=== PATIENT | male | born 1990 | race Caucasian/White ===

== ENCOUNTER 2020-04-15 13:16 | Inpatient (IN) | payer BC, SELFPAY ==
[~2020-04-15] VITALS: Ht 167.6 cm; Wt 98.4 kg
[2020-04-15 13:19] VITALS: Ht 167.6 cm; Wt 98.4 kg
[2020-04-15 15:26] LABS: BASOPHIL % 0.2 % (0-2); PLATELET COUNT 134 x10^3mcL (130-400); RED CELL DISTRIBUTION WIDTH 13.5 % (11.5-14.5)
[2020-04-15 15:51] LABS: UA SPECIFIC GRAVITY 1.025 (1.005-1.035); microscopic required? YES; urine erythrocyte 2+ (NEGATIVE)
[2020-04-15 15:57] LABS: CALCIUM 7.6 mg/dL (8.5-10.1); CARBON DIOXIDE 22.7 mmol/L (21-32); CHLORIDE SERUM 95 mmol/L (98-107); CREATININE SERUM 1.1 mg/dL (0.7-1.3); GFR1 > 60 mL/min; GLUCOSE SERUM 123 mg/dL (74-106); POTASSIUM SERUM 3.4 mmol/L (3.5-5.1); SODIUM SERUM 128 mmol/L (136-145)
[2020-04-15 16:02] LABS: ALKALINE PHOSPHATASE 59 U/L (46-116); ALT/SGPT 178 U/L (16-63); AST/SGOT 105 U/L (15-37); BILIRUBIN TOTAL 0.56 mg/dL (0.20-1.00); LACTIC DEHYDROGENASE (LDH) 372 U/L (100-190); TOTAL PROTEIN, SERUM 8.2 g/dL (6.4-8.2)
[2020-04-15 16:06] LABS: ALBUMIN 3.3 g/dL (3.4-5.0); C REACTIVE PROTEIN 17.4 mg/dL (<=0.9)
[2020-04-16] VITALS (7 sets, daily range): BP systolic 100–123; BP diastolic 59–73
[2020-04-16 07:37] LABS: ALKALINE PHOSPHATASE 52 U/L (46-116); ALT/SGPT 156 U/L (16-63); AST/SGOT 88 U/L (15-37); BILIRUBIN TOTAL 0.5 mg/dL (0.20-1.00); CHLORIDE SERUM 95 mmol/L (98-107); CREATININE SERUM 0.8 mg/dL (0.7-1.3); GFR1 > 60 mL/min; GLUCOSE SERUM 117 mg/dL (74-106); SODIUM SERUM 131 mmol/L (136-145); TOTAL PROTEIN, SERUM 7.8 g/dL (6.4-8.2)
[2020-04-16 07:39] LABS: ALBUMIN 3.2 g/dL (3.4-5.0)
[2020-04-16 07:45] LABS: MAGNESIUM 2.5 mg/dL (1.8-2.4); PHOSPHOROUS 3.4 mg/dL (2.5-4.9)
[2020-04-16] MEDS ORDERED: VENTOLIN H0.09 MG/A1 IH (12:43)
[2020-04-16] MEDS ORDERED: MUCINEX600 MG PO (12:44)
[2020-04-16] MEDS ORDERED: DECADRON6 MG PO (12:44)
[2020-04-16 17:49] LABS: BASOPHIL % 0.1 % (0-2); PLATELET COUNT 159 x10^3mcL (130-400); RED CELL DISTRIBUTION WIDTH 13.7 % (11.5-14.5)
[2020-04-17 05:31] VITALS: BP 102/59
[2020-04-17 07:08] LABS: BASOPHIL % 0.1 % (0-2); PLATELET COUNT 192 x10^3mcL (130-400); RED CELL DISTRIBUTION WIDTH 12.7 % (11.5-14.5)
[2020-04-17 07:10] LABS: ALKALINE PHOSPHATASE 53 U/L (46-116); ALT/SGPT 124 U/L (16-63); AST/SGOT 70 U/L (15-37); BILIRUBIN TOTAL 0.6 mg/dL (0.20-1.00); CALCIUM 7.8 mg/dL (8.5-10.1); CARBON DIOXIDE 25.2 mmol/L (21-32); CHLORIDE SERUM 95 mmol/L (98-107); CREATININE SERUM 0.9 mg/dL (0.7-1.3); GFR1 > 60 mL/min; GLUCOSE SERUM 112 mg/dL (74-106); POTASSIUM SERUM 3.4 mmol/L (3.5-5.1); SODIUM SERUM 131 mmol/L (136-145); TOTAL PROTEIN, SERUM 7.5 g/dL (6.4-8.2)
[2020-04-17 10:00] VITALS: BP 113/71
[2020-04-17 12:41] VITALS: BP 125/78
[2020-04-17 15:34] VITALS: BP 125/78
== END 2020-04-17 16:33 | disposition home or self-care (01) | DRG 177 ==
LOC: ED 13:16 → MU 17:16 → DU 23:59 → MU 04-16 04:31
PROVIDERS: Emergency Medicine; ADMIT Internal Medicine; ATTEND Internal Medicine
DX: U07.1 COVID-19 (principal); J12.89 Other viral pneumonia; J96.01 Acute respiratory failure with hypoxia; E46 Unspecified protein-calorie malnutrition; M62.82 Rhabdomyolysis; E87.1 Hypo-osmolality and hyponatremia; E83.51 Hypocalcemia; E87.6 Hypokalemia; Z68.35 Body mass index [BMI] 35.0-35.9, adult
CPT/HCPCS: 36600; 83880; 85378; 87804; G0378; J0456; J0696; J1100; J1650; J3535; J7050

== ENCOUNTER 2020-04-17 23:30 | Inpatient (IN) | payer BC ==
[~2020-04-17] VITALS: Ht 165.1 cm; Wt 90.7 kg
[~2020-04-17 23:30] MED LIST: DECADRON6 MG PO; MUCINEX600 MG PO; VENTOLIN H0.09 MG/A1 IH
[2020-04-18 00:07] VITALS: Ht 165.1 cm; Wt 90.7 kg
--- NOTE | 2020-04-18 00:28 | NUR ---
PT GIVEN 3L O2 NC FOR SATS IN UPPER 80'S.
--- NOTE | 2020-04-18 01:15 | NUR ---
PT STATING HE IS FEELING BETTER WITH OXYGEN. NO SIGNS OF DISTRESS.
[2020-04-18 03:58] LABS: PLATELET COUNT 213 x10^3mcL (130-400); RED CELL DISTRIBUTION WIDTH 13.7 % (11.5-14.5)
[2020-04-18 04:01] LABS: BASOPHIL % 0 % (0-2)
[2020-04-18 04:10] LABS: CALCIUM 8.4 mg/dL (8.5-10.1); CARBON DIOXIDE 26.8 mmol/L (21-32); CHLORIDE SERUM 96 mmol/L (98-107); CREATININE SERUM 0.9 mg/dL (0.7-1.3); GFR1 > 60 mL/min; GLUCOSE SERUM 166 mg/dL (74-106); POTASSIUM SERUM 3.6 mmol/L (3.5-5.1); SODIUM SERUM 132 mmol/L (136-145)
[2020-04-18 04:15] LABS: ALBUMIN 3.2 g/dL (3.4-5.0); ALKALINE PHOSPHATASE 64 U/L (46-116); ALT/SGPT 141 U/L (16-63); AST/SGOT 65 U/L (15-37); BILIRUBIN TOTAL 0.85 mg/dL (0.20-1.00); TOTAL PROTEIN, SERUM 8.5 g/dL (6.4-8.2)
--- NOTE | 2020-04-18 04:19 | NUR ---
PT APPEARS ANXIOUS AND UNCOMFORTABLE, COUGH IS DRY AND HACKING, PT MEDICATED, FLUIDS INFUSING.
--- NOTE | 2020-04-18 06:00 | NUR ---
PT COMPLAINING ABOUT HIS ROOM BEING TOO COLD, PT STATED "I WANT TO SIGN OUT AND GO TO ANOTHER HOSPITAL." I PROVIDED ADDITIONAL BLANKETS X 3, ASSURED THE PATIENT THAT I WOULD DO EVERYTHING TO MAKE HIM COMFORTABLE BUT HAD NO OTHER ROOM TO MOVE HIM TO.
--- NOTE | 2020-04-18 06:35 | NUR ---
CALLED BY PATIENTS SISTER RE. PATIENT LEAVING. PATIENT AGAIN STATED "I WANT TO SIGN OUT." I BROUGHT THE AMA FORM TO THE PATIENT. AGAIN HE CHANGED HIS MIND. PT WILL REMAIN AND BE ADMITTED.
[2020-04-18 06:45] VITALS: BP 129/69
--- NOTE | 2020-04-18 08:45 | NUR ---
29 Y/O MALE PMH: COVID + LAST WEEK PER PT. C/O SOB/BRINK +SOB/CHILLS/COUGH/BRINK DENIES N/V/F/JARRELL/DIZZINESS, PT. AMBULATES WITH SLOW STEADY GAIT, SPEAKING IN CLEAR FULL SENTENCES, RESPIRATIONS EVEN AND UNLABORED, SKIN COOL AND DRY TO TOUCH, B/L RADIAL/PEDAL PULSES +2, B/L HAND CORRECTIONS OFFICER/PEDAL PUSHES +2, MAINTAINED ON COVID PRECAUTIONS, REMAINS ON CONTINUOUS MONITOR, PENDING ADMIT.
--- NOTE | 2020-04-18 08:51 | NUR ---
PT. GIVEN BREAKFAST
--- NOTE | 2020-04-18 12:56 | NUR ---
PT. GIVEN LUNCH, TOLERATING PO INTAKE WELL.
== END 2020-04-18 14:14 | disposition home or self-care (01) | DRG 177 ==
LOC: ED 23:30 → DU 04-18 05:20
PROVIDERS: Emergency Medicine; ADMIT Family Medicine; ATTEND Family Medicine
DX: U07.1 COVID-19 (principal); J96.01 Acute respiratory failure with hypoxia; J12.89 Other viral pneumonia
CPT/HCPCS: 36600; 85378; G0378; J1100; J1885; J2550; J3535